=== PATIENT | male | born 1955 | race Hispanic/Latino ===

== ENCOUNTER 2019-04-11 08:33 | Day surgery (SDC) | payer MEDICARE ==
[~2019-04-11] VITALS: Ht 157.5 cm; Wt 70.9 kg
[~2019-04-11 08:33] MED LIST: ASPI-555 PO; ATOR20TA65 PO; CALC600T12 PO; CARV3.12 PO; FURO40TA5 PO; HYDR-4153 PO; LOSA25TA41 PO; MV-M1TAB20 PO; PRED5DRO25 OP; SODIUM CHLORIDE 0.9% 1000ML 1,000 ML IV ONE; auryxia PO
[2019-04-11 09:45] VITALS: BP 153/51
[2019-04-11 10:33] VITALS: BP 94/45
[2019-04-11 10:35] VITALS: BP 94/45
[2019-04-11 10:40] VITALS: BP 114/46
[2019-04-11 10:45] VITALS: BP 129/47
[2019-04-11 11:01] VITALS: BP 133/59
== END 2019-04-11 11:22 | disposition home or self-care (01) ==
LOC: DAH 08:33
PROVIDERS: ATTEND Internal Medicine Gastroenterology
DX: D12.0 Benign neoplasm of cecum (principal); D12.2 Benign neoplasm of ascending colon; D50.9 Iron deficiency anemia, unspecified; D12.3 Benign neoplasm of transverse colon; D17.5 Benign lipomatous neoplasm of intra-abdominal organs; K29.50 Unspecified chronic gastritis without bleeding; K63.89 Other specified diseases of intestine; K22.8 Other specified diseases of esophagus; K64.0 First degree hemorrhoids; K63.5 Polyp of colon; K57.30 Diverticulosis of large intestine without perforation or abscess without bleeding; E78.5 Hyperlipidemia, unspecified; F41.9 Anxiety disorder, unspecified; F32.9 Major depressive disorder, single episode, unspecified; M19.90 Unspecified osteoarthritis, unspecified site; I12.0 Hypertensive chronic kidney disease with stage 5 chronic kidney disease or end stage renal disease; E11.22 Type 2 diabetes mellitus with diabetic chronic kidney disease; N18.6 End stage renal disease; I50.9 Heart failure, unspecified; Z98.49 Cataract extraction status, unspecified eye; Z79.899 Other long term (current) drug therapy; Z79.82 Long term (current) use of aspirin; Z86.718 Personal history of other venous thrombosis and embolism; Z99.2 Dependence on renal dialysis
CPT/HCPCS: 36415; 43239; 45380; 45385; 82948 ×2; 84132; 88305; 88342; 93005; A4606; J7030

== ENCOUNTER → 2020-05-21 | Outpatient (CLI) | payer OTHER ==
[~2020-05-21] MED LIST changes: -ASPI-555 PO; +ASPI-556 PO; -CALC600T12 PO; +CALC600T15 PO; -SODIUM CHLORIDE 0.9% 1000ML 1,000 ML IV ONE
== END | disposition home or self-care (01) ==
LOC: OIH 14:50
PROVIDERS: ATTEND Internal Medicine Cardiovascular Disease
DX: Z13.6 Encounter for screening for cardiovascular disorders (principal)
CPT/HCPCS: 75571

== ENCOUNTER → 2020-07-16 | Outpatient (CLI) | payer MEDICARE ==
[~2020-07-16] MED LIST changes: +REGADENOSON 0.4 MG/5 ML PF SYG IVP SCH
== END | disposition home or self-care (01) ==
LOC: RAH 09:08
PROVIDERS: ATTEND Internal Medicine Cardiovascular Disease
DX: Z01.810 Encounter for preprocedural cardiovascular examination (principal); R06.00 Dyspnea, unspecified
CPT/HCPCS: 78452; 93017; 96374; A9500 ×2; J2785